=== PATIENT | female | born 1970 | race Two or more races ===

== ENCOUNTER → 2020-11-19 06:21 | Outpatient (CLI) | payer OTHER ==
[~2020-11-19 06:21] MED LIST: CIPRO500 MG PO; ELIQUIS2.5 MG PO; PERCOCET 5-3251 EACH PO
== END | disposition home or self-care (01) ==
LOC: LAB 06:21
PROVIDERS: ATTEND Orthopaedic Surgery
DX: M17.11 Unilateral primary osteoarthritis, right knee (principal); Z03.818 Encounter for observation for suspected exposure to other biological agents ruled out; Z20.828 Contact with and (suspected) exposure to other viral communicable diseases

== ENCOUNTER 2020-11-24 08:15 | Inpatient (IN) | payer OTHER ==
[~2020-11-24] VITALS: Ht 175.3 cm; Wt 88.9 kg
[2020-12-03] MEDS ORDERED: ELIQUIS2.5 MG PO (09:54)
[2020-12-03] MEDS ORDERED: CIPRO500 MG PO (09:54)
[2020-12-03] MEDS ORDERED: PERCOCET 5-3251 EACH PO (09:54)
== END 2020-12-03 13:43 | DRG 470 ==
LOC: O/R 12-01 05:50 → SURH 12-01 07:00 → SURG 12-01 16:55
PROVIDERS: ADMIT Orthopaedic Surgery; ATTEND Orthopaedic Surgery
PROC: 0MNP0ZZ Release Left Knee Bursa and Ligament, Open Approach (ICD-10-PCS; 2020-12-01)
PROC: 3E0F7SF Introduction of Other Gas into Respiratory Tract, Via Natural or Artificial Opening (ICD-10-PCS; 2020-12-01)
PROC: 0SRD0J9 Replacement of Left Knee Joint with Synthetic Substitute, Cemented, Open Approach (ICD-10-PCS; principal; 2020-12-01 07:00)
DX: M17.12 Unilateral primary osteoarthritis, left knee (principal); D62 Acute posthemorrhagic anemia; M22.12 Recurrent subluxation of patella, left knee; Z20.822 Contact with and (suspected) exposure to COVID-19; M25.562 Pain in left knee; E78.00 Pure hypercholesterolemia, unspecified

== ENCOUNTER 2022-09-28 10:27 | Emergency (ER) | payer OTHER ==
[~2022-09-28] VITALS: Ht 170.2 cm; Wt 86.2 kg
[2022-09-28] MEDS ORDERED: KETO10TA2 PO (15:13)
[2022-09-28] MEDS ORDERED: NORFLEX100MG PO (15:13)
== END 2022-09-28 15:20 | disposition home or self-care (01) ==
LOC: ER 10:27
DX: M54.59 Other low back pain (principal); Z88.0 Allergy status to penicillin

== ENCOUNTER 2024-01-09 10:37 | Outpatient (CLI) | payer OTHER ==
[~2024-01-09 10:37] MED LIST changes: +KETO10TA2 PO; +NORFLEX100MG PO
== END 2024-01-09 10:45 | disposition home or self-care (01) ==
LOC: SONOGRAMA 10:37
DX: R59.9 Enlarged lymph nodes, unspecified (principal); R22.32 Localized swelling, mass and lump, left upper limb; M79.622 Pain in left upper arm

== ENCOUNTER 2024-02-05 10:07 | Outpatient (CLI) | payer OTHER | END 2024-02-05 10:13 | disposition home or self-care (01) | LOC: TOM 10:07 | DX: I82.622 Acute embolism and thrombosis of deep veins of left upper extremity (principal) ==

== ENCOUNTER 2024-05-10 08:09 | Outpatient (CLI) | payer OTHER | END 2024-05-10 08:15 | disposition home or self-care (01) | LOC: MRI 08:09 | PROVIDERS: ATTEND Physical Medicine & Rehabilitation | DX: M17.11 Unilateral primary osteoarthritis, right knee (principal); M54.50 Low back pain, unspecified | CPT/HCPCS: 72148 ==

== ENCOUNTER → 2024-06-13 08:43 | Outpatient (CLI) | payer OTHER | END | disposition home or self-care (01) | LOC: NUCLEAR 08:43 | DX: I82.622 Acute embolism and thrombosis of deep veins of left upper extremity (principal) ==

== ENCOUNTER 2024-11-04 07:27 | Outpatient (CLI) | payer OTHER | END 2024-11-04 07:39 | disposition home or self-care (01) | LOC: TOM 07:27 | DX: R10.9 Unspecified abdominal pain (principal) ==

== ENCOUNTER 2025-01-02 10:20 | Outpatient (CLI) | payer OTHER | END 2025-01-02 10:24 | disposition home or self-care (01) | LOC: SONOGRAMA 10:20 | DX: M25.512 Pain in left shoulder (principal) ==

== ENCOUNTER 2025-03-10 07:17 | Outpatient (CLI) | payer OTHER | END 2025-03-10 07:27 | disposition home or self-care (01) | LOC: MAMO-SONO 07:17 | DX: Z12.31 Encounter for screening mammogram for malignant neoplasm of breast (principal) ==